=== PATIENT | female | born 1995 | race Caucasian/White ===

== ENCOUNTER 2024-03-20 07:30 | Inpatient (IN) | payer BC ==
[2024-03-20] MEDS: ELECTROLYTE-148 SOLN 1,000 ML IV SCH (08:00)
[2024-03-20] MEDS: DINOPROSTONE 10 MG VAGINAL SUPPOSITORY VG ONE ×2 (08:11→21:40)
[2024-03-20 10:01] VITALS: BMI 27.3
[2024-03-20 10:03] LABS: BASO % 0.4 % (0-2.0); EOS % 0.5 % (0-4.5); HEMATOCRIT 26.1 % (32.4-45.2); LYMPH % 12.1 % (8-40); MCH 20.7 pg (25.7-33.7); MCHC 30.7 g/dl (32.0-36.0); MEAN CELL VOLUME 67.6 fl (80-96); PLATELET COUNT 270 10^3/uL (134-434); RBC 3.85 M/mm3 (3.60-5.2); RDW 18.4 % (11.6-15.6); WHITE BLOOD COUNT 14.1 K/mm3 (4.0-10.0)
[2024-03-20 10:06] LABS: INR 0.91 (0.83-1.09); PROTHROMBIN TIME (PATIENT) 10.5 SEC (9.7-13.0)
[2024-03-20 10:09] LABS: ACTIVATED PTT 25.2 SECONDS (25.2-36.5)
[2024-03-20 10:11] LABS: POTASSIUM 4.3 mmol/L (3.5-5.1)
[2024-03-20 10:12] LABS: CALCIUM 8.5 mg/dL (8.5-10.1)
[2024-03-20 10:13] LABS: BLOOD UREA NITROGEN 10.6 mg/dL (7-18)
[2024-03-20 10:16] LABS: CREATININE 0.5 mg/dL (0.55-1.3)
[2024-03-20 11:26] LABS: ANISOCYTOSIS 1+; MACROCYTOSIS 0
[2024-03-20 11:49] LABS: HEPATITIS B SURFACE AG MATERN NON-REACTIVE (NONREACTIVE)
[2024-03-20 11:50] LABS: SYPHILIS W/ RPR CONF NON-REACTIVE (NONREACTIVE)
[2024-03-20 12:18] LABS: HIV INTERPRETATION NEGATIVE (NEGATIVE)
[2024-03-21] MEDS ORDERED: OXYTOCIN 30 UNITS in 0.9% NS 30 UNIT/500 ML INFUS.BAG IVPB ONE (09:22)
[2024-03-21] MEDS: OXYTOCIN 30 UNITS in 0.9% NS 30 UNIT/500 ML INFUS.BAG IVPB SCH (09:40)
[2024-03-21] MEDS ORDERED: PROMETHAZINE HCL 25 MG/1 ML VIAL ONE (13:00)
[2024-03-21] MEDS ORDERED: BUTORPHANOL TARTRATE 2 MG/ML VIAL ONE (13:00)
[2024-03-21] MEDS: BUTORPHANOL TARTRATE 1 MG/ML VIAL IVPB ONE (13:10)
[2024-03-21] MEDS: PROMETHAZINE HCL 25 MG/1 ML VIAL IVPB ONE (13:10)
[2024-03-21] MEDS: DEXTROSE 5%-LACTATED RINGERS 1,000 ML IV SCH (20:20)
[2024-03-22] MEDS ORDERED: PROMETHAZINE HCL 25 MG/1 ML VIAL ONE (03:06)
[2024-03-22] MEDS ORDERED: BUTORPHANOL TARTRATE 2 MG/ML VIAL ONE (03:06)
[2024-03-22] MEDS: PROMETHAZINE HCL 25 MG/1 ML VIAL IVPB ONE (03:15)
[2024-03-22] MEDS: BUTORPHANOL TARTRATE 1 MG/ML VIAL IVPB ONE (03:15)
[2024-03-22] MEDS ORDERED: FENTANYL CITRATE/PF 50 MCG/ML VIAL ONE (08:48)
[2024-03-22] MEDS ORDERED: morphine SULFATE/PF 1 MG/2 ML (2cc Syringe - QUVA) ONE (08:48)
[2024-03-22] MEDS ORDERED: AZITHROMYCIN IVPB 500 MG/250 ML BAG IVPB ONE (09:03)
[2024-03-22] MEDS ORDERED: ONDANSETRON 4 MG/2 ML VIAL ONE (09:04)
[2024-03-22] MEDS ORDERED: ceFAZolin SODIUM 1 GM VIAL ONE (09:04)
[2024-03-22] MEDS ORDERED: DEXAMETHASONE SOD PHOSPHATE 4 MG/1 ML VIAL ONE (09:04)
[2024-03-22] MEDS ORDERED: METOCLOPRAMIDE HCL INJECTION 10 MG/2 ML VIAL ONE (09:04)
[2024-03-22] MEDS ORDERED: KETOROLAC TROMETHAMINE 30 MG/1 ML VIAL ONE (09:04)
[2024-03-22] MEDS ORDERED: OXYTOCIN 10 UNITS/ML VIAL ONE ×2 (09:04→09:09)
[2024-03-22] MEDS ORDERED: ONDANSETRON 4 MG/2 ML VIAL IVPB PRN (10:18)
[2024-03-22] MEDS ORDERED: oxyCODONE HCL 5 MG TABLET PO PRN (10:18)
[2024-03-22] MEDS ORDERED: OXYTOCIN 20 UNITS in 0.9% NS 20 UNIT/1,000 ML INFUS.BAG IV ONE (11:18)
[2024-03-22] MEDS: ACETAMINOPHEN 1000 MG/100 ML BAG IVPB PRN (14:33)
[2024-03-22] MEDS: IBUPROFEN 800 MG/8 ML IJ IVPB PRN (18:37)
[2024-03-22] MEDS: SIMETHICONE 80 MG TAB.CHEW (FP) PO PRN (18:42)
[2024-03-22] MEDS: SENNOSIDES/DOCUSATE COMBO (SENNA PLUS) TABLET (UD) PO SCH (22:12)
[2024-03-22] MEDS: FERROUS SO4 325 MG TABLET (FP) PO SCH (22:12)
[2024-03-23] MEDS: IBUPROFEN 600 MG TABLET (FP) PO PRN (05:45)
[2024-03-23 07:30] LABS: BASO % 0.2 % (0-2.0); EOS % 0.2 % (0-4.5); HEMATOCRIT 26.3 % (32.4-45.2); HEMOGLOBIN 8.2 GM/dL (10.7-15.3); MCH 22.3 pg (25.7-33.7); MCHC 31.1 g/dl (32.0-36.0); MEAN CELL VOLUME 71.7 fl (80-96); MEAN PLT VOLUME 8.1 fl (7.5-11.1); MONO % 6.2 % (3.8-10.2); NEUT % 80.4 % (42.8-82.8); PLATELET COUNT 251 10^3/uL (134-434); RBC 3.67 M/mm3 (3.60-5.2); RDW 20.8 % (11.6-15.6); WHITE BLOOD COUNT 17.4 K/mm3 (4.0-10.0)
[2024-03-23] MEDS ORDERED: BISACODYL 10 MG SUPP.RECT RC PRN (10:18)
[2024-03-23] MEDS: ZOLPIDEM TARTRATE 5 MG TABLET PO ONE (20:29)
[2024-03-23] MEDS: OXYTOCIN 20 UNITS in 0.9% NS 20 UNIT/1,000 ML INFUS.BAG IV SCH (20:32)
[2024-03-24] MEDS: ACETAMINOPHEN 325 MG TABLET (FP) PO PRN (09:47)
[2024-03-24 22:36] VITALS: RESP 18
[2024-03-25 10:12] VITALS: BP 136/79; PULSE 77; TEMP 98.2
== END 2024-03-25 12:35 | disposition home or self-care (01) | DRG 788 ==
LOC: JLDR 07:30 → J3W 03-22 12:40
PROVIDERS: ADMIT Obstetrics & Gynecology; ATTEND Specialist
PROC: 10D00Z1 Extraction of Products of Conception, Low, Open Approach (ICD-10-PCS; principal; 2024-03-22)
DX: O76 Abnormality in fetal heart rate and rhythm complicating labor and delivery (principal); O62.0 Primary inadequate contractions; O32.4XX0 Maternal care for high head at term, not applicable or unspecified; Z3A.39 39 weeks gestation of pregnancy; Z37.0 Single live birth
CPT/HCPCS: 36415; 36430; 80048; 85025; 85610; 85730; 86762; 86780; 86803; 86850; 86900; 86901; 86922; 87340; 87389; 88307-TC; J0131; P9038; P9058